=== PATIENT | male | born 2000 | race Caucasian/White ===

== ENCOUNTER 2025-04-11 18:21 | Emergency (ER) | payer BC, SELFPAY ==
[2025-04-11 18:22] VITALS: BMI 33.0
[2025-04-11 18:35] VITALS: BP 99/62; PULSE 92; RESP 20; TEMP 36.8; O2SAT 98
--- NOTE | 2025-04-11 18:39 | XR_ITS ---
Examination: Hand, right 3 views Technique: Hand AP, oblique, lateral 3 views Date and time of exam: April 11, 2025, 1848 hours. INDICATIONS: Dog bite today. FINDINGS: Old fracture fifth metacarpal. No acute fracture. No opaque foreign body. IMPRESSION: No opaque foreign body
--- NOTE | 2025-04-11 18:40 | EDNOTE_ITS ---
ED Animal Bite RME/HPI General Chief Complaint: Animal Bite Stated Complaint: 3 PUNCTURE WOUNDS TO TO R) HAND C/B DOG BITE Time Seen by Provider: 04/11/25 18:39 Arrival date/time: 04/11/25 18:21 Mode of arrival: ambulatory Limitations: no limitations RME / HPI RME / HPI narrative: 25-year-old healthy male with no past medical history is here today with a dog bite to his right hand. He states his 1.5-year-old Labrador bit his hand just prior to his arrival. He does not recall his last tetanus shot. He is allergic to Augmentin and penicillin. He has diffuse swelling of his right hand with a laceration along the dorsal aspect. Related Data Previous Rx's ?Medication ?Instructions ?Recorded doxycycline hyclate 100 mg tablet 100 mg PO BID #14 ta bs 04/11/25 doxycycline hyclate 100 mg tablet 100 mg PO BID 14 day s #28 tabs 04/11/25 ibuprofen 600 mg tablet 600 mg PO TID PRN pain #20 t abs 04/11/25 Allergies Allergy/AdvReac Type Severity Reaction Status Date / Time amoxicillin (From Augmentin) Allergy Severe Swelling Verified 04/11/25 18:25 of Lip/Tongue/Throat clavulanic acid (From Allergy Severe Swelling Verified 04/11/25 18:25 Augmentin) of Lip/Tongue/Throat Penicillins Allergy Severe Swelling Verified 04/11/25 18:25 of Lip/Tongue/Throat Review of Systems Review of Systems Systems Reviewed: All systems reviewed, normal except as documented ED Exam General Limitations: Present no limitations General appearance: Present alert and in no apparent distress Head Head exam: Present atraumatic Eye Eye exam: Present normal appearance, PERRL and EOMI ENT ENT exam: Present normal exam, normal oropharynx and mucous membranes moist Neck Neck exam: Present normal inspection, full ROM and trachea midline Chest Chest inspection: Present normal inspection and symmetric chest wall rise Respiratory Respiratory exam: Present normal lung sounds bilaterally Cardiovascular Cardiovascular exam: Present regular rate, normal rhythm and normal heart sounds Abdominal Exam Abdominal exam: Present soft and normal bowel sounds Extremities Exam Extremities exam: Present normal inspection and full ROM Back Exam Back exam: Present normal inspection and full ROM Neurological Exam Neurological exam: Present alert and oriented X3 Psychiatric Psychiatric exam: Present normal affect and normal mood Skin Skin exam: Present warm and other (There is a 2 cm, linear, laceration along the dorsal aspect the right hand in addition to a 0.3 cm, jagged, laceration along the dorsal aspect of the hand. On the long the palmar aspect there are 3 separate lacerations ranging 1 cm to 0.25 cm in length.) Course Quality Measures none Orders Category Date Time Status TDap [Obtain Tdap Consent] X1 Care 04/11/25 18:39 Completed XR hand comp RT min 3V Stat Exams 04/11/25 18:39 Completed Doxycycline [Vibramycin] Med 04/11/25 18:39 Discontinued 100 mg PO X1 ONE HYDROcodone*/APAP 5/325 [[place] 5/325] Med 04/11/25 18:39 Discontinued 1 tab PO X1 ONE Lidocaine 1% 20 ml [Xylocaine 1% 20 ML] Med 04/11/25 18:39 Discontinued 20 ml INFL X1 ONE Vital Signs Vital signs: Vital Signs Temperature 98.3 F 04/11/25 18:35 Pulse Rate 92 04/11/25 18:35 Respiratory Rate 20 04/11/25 18:35 Blood Pressure 99/62 04/11/25 18:35 Pulse Oximetry (%) 98 04/11/25 18:35 Oxygen Delivery Method Room Air 04/11/25 18:35 PROCEDURES: Procedure Comment Verbal consent was obtained. Wounds were infiltrated 1% lidocaine. Wounds were irrigated with normal saline by nursing staff. A total of 2 L was used. The 2 cm wound along the dorsal aspect of the hand was loosely approximated with 2, 4?0, simple interrupted nylon sutures. 2 wounds along the palmar aspect were loosely approximated with a single, 4?0, simple interrupted nylon suture. Procedure was tolerated well for any immediate complication. Animal Bite MDM Narrative MDM Narrative:: 25-year-old healthy male with no past medical history is here today with a dog bite to his right hand. He states his 1.5-year-old Labrador bit his hand just prior to his arrival. He does not recall his last tetanus shot. He is allergic to Augmentin and penicillin. He has diffuse swelling of his right hand with a laceration along the dorsal aspect. On exam, patient is mildly anxious appearing but in no visible signs of severe distress. Vital signs are stable. Cap refill of the right fingers is brisk. Patient has multiple, small, lacerations. X-rays were obtained and there were no appreciated foreign bodies or fractures. Wounds were loosely approximated after the the wounds were irrigated by nursing staff. Wound care were discussed. Patient agrees to follow-up in clinic in 10 days for wound recheck. Consider suture removal at that time. He will continue doxycycline as prescribed. Return as needed for any worsening or emergent changes. Patient data External records reviewed:: None Clinical information provided by:: patient Social determinants that could affect healthcare access:: none Patient has the following chronic illnesses:: n/a How is presenting disease/condition affected by chronic disease/condition?: no chronic disease Evaluation data The following diagnostics were reviewed and interpreted by me:: radiology exam(s) (No radiopaque foreign bodies or osseous injury) Lab and/or radiology exams considered but not ordered:: n/a Interpretation Summary: Dog bite, lacerations Medications / Prescriptions Medications or Prescriptions considered but not ordered:: n/a Medication administrations:: Medication Administration History Discontinued Medications Hydrocodone Bitart/Acetaminophen (Hydrocodone/Apap 5/325 Tablet) 1 tab PO X1 ONE Stop: 04/11/25 18:40 Last Admin: 04/11/25 19:01 Dose: 1 tab Documented By: МАРИНА Doxycycline Hyclate (Doxycycline 100 Mg Tablet) 100 mg PO X1 ONE Stop: 04/11/25 18:40 Last Admin: 04/11/25 19:02 Dose: 100 mg Documented By: МАРИНА Lidocaine HCl (Lidocaine Hcl 1% 20 Ml Vial) 20 ml INFL X1 ONE Stop: 04/11/25 18:40 Last Admin: 04/11/25 19:03 Dose: 20 ml Documented By: МАРИНА See above Consultations Consultation(s) initiated? (list below): No Diagnosis Differential diagnosis animal bite: dog bite Most likely diagnosis given after review of the tests above:: Dog bite, lacerations Admission Indicated Admission indicated?: not indicated Admission Request Was there a request for admission?: No Disposition Plan Disposition Plan: Discharge Discharge Attestation Discharge Attestation: The patient and all family members were given an opportunity to ask questions and understood the discharge instructions. Discharge instructions specifically effects, indications for sooner follow up or return to the emergency department, and the expected course of current diagnosis. Patient condition: Stable Discharge Plan Plan Patient Disposition: HOME (Self Care) Patient condition on transfer: Stable Prescriptions/Referrals Prescriptions/Med Rec: New doxycycline hyclate 100 mg tablet 100 mg PO BID Qty: 14 0RF ibuprofen 600 mg tablet 600 mg PO TID PRN (Reason: pain) Qty: 20 0RF doxycycline hyclate 100 mg tablet 100 mg PO BID 14 Days Qty: 28 0RF Referrals: Meri Thorpe MD [Primary Care Provider] - In 1 week Problem List Clinical Impression: Dog bite, Hand laceration Patient/Caregiver Discharge Instructions Education Materials: ED Dog Bite, ED Laceration, Hand: All Closures Additional Instructions: - It is important to keep your wounds covered. You may wash your hands frequent ly with soap and water. Avoid any hydroperoxide, alcohol, or iodine. - Continue using the provided antibiotic twice daily for 7 days. - Follow-up in clinic in 7 to 10 days for wound recheck. - Return at anytime for any worsening changes including signs and symptoms of infection. This includes includes but is not limited to increased redness, discharge, foul odor, or severe pain. Print Language: Emirati Stand Alone Forms: Gladys Award Info., Patient Portal Info Letter
[2025-04-11] MEDS: HYDROcodone/APAP 5/325 TABLET 1 TAB PO (19:01)
[2025-04-11] MEDS: DOXYCYCLINE 100 MG TABLET PO (19:02)
[2025-04-11] MEDS: LIDOCAINE HCL 1% 20 ML VIAL INFL (19:03)
== END 2025-04-11 21:38 | disposition home or self-care (01) ==
PROVIDERS: Emergency Provider Emergency Medicine; PCP Family Medicine
DX: S61.451A Open bite of right hand, initial encounter (principal); W54.0XXA Bitten by dog, initial encounter
CPT/HCPCS: 12001; 73130; 99283; J3490; A9270

== ENCOUNTER → 2025-05-18 | Outpatient (CLI) | payer BC, SELFPAY ==
[2025-05-18 08:50] LABS: Glucose Estimated Average 105 mg/dL (80-131); Hemoglobin A1C 5.3 % Hgb (4.8-6.0)
[2025-05-18 08:58] LABS: Alanine Aminotransferase 36 U/L (10-49); Albumin, Serum 5.0 gm/dL (3.5-5.0); Albumin/Globulin Ratio 2.4 (1.2-2.2); Anion Gap 11 (7-16); Aspartate Amino Transferase 22 U/L (0-34); BUN/Creatinine Ratio 14 Ratio (12-20); Bilirubin,Total 0.7 mg/dL (0.3-1.2); Blood Urea Nitrogen 15 mg/dL (9-23); Calcium 10.6 mg/dL (8.3-10.6); Calcium (Corrected) 10.6 mg/dL (8.5-10.1); Carbon Dioxide 27.6 mMol/L (20.0-31.0); Chloride 104 mMol/L (98-107); Cholesterol 200 mg/dL (132-200); Creatinine (Component) 1.1 mg/dL (0.6-1.3); Globulin 2.1 gm/dL (2.3-3.5); Glucose 92 mg/dL (74-106); HDL Cholesterol 51 mg/dL (40-60); Osmolality,Calculated 285 (275-295); Potassium 4.8 mMol/L (3.4-5.1); Sodium 143 mMol/L (136-145); Total Protein 7.1 gm/dL (5.7-8.2); Triglycerides 168 mg/dL (30-150); eGFR > 60 See Note
[2025-05-18 08:59] LABS: Alkaline Phosphatase 72 U/L (46-116); Cardiac Risk Estimate 3.9 RATIO (4.0-6.7); LDL Cholesterol,Calculated 115 mg/dL (0-130); Thyroid Stimulating Hormone 2.03 uIU/mL (0.55-4.78)
[2025-05-18 09:00] LABS: Basophils # (Auto) 0.0 Thou/mm3 (0.0-0.2); Basophils % (Auto) 1 % (0-2.5); Eosinophils # (Auto) 0.2 Thou/mm3 (0.0-0.5); Eosinophils % (Auto) 3 % (0-10); Hematocrit 50.2 % (41.0-53.0); Hemoglobin 17.2 g/dL (13.5-16.0); Immature Granulocytes Auto 0.04 Thou/mm3 (0.00-0.00); Lymphocytes # (Auto) 2.1 Thou/mm3 (1.0-4.8); Lymphocytes % (Auto) 34 % (10-50); Mean Corpuscular HGB Conc 34.3 g/dl (31.0-37.0); Mean Corpuscular Hemoglobin 29.8 pg (25.0-35.0); Mean Corpuscular Volume 87 fL (80-100); Monocytes # (Auto) 0.5 Thou/mm3 (0.0-0.8); Monocytes % (Auto) 8 % (0-12); Neutrophils # (Auto) 3.5 Thou/mm3 (1.8-7.7); Neutrophils % (Auto) 55 % (37-80); Nucleated Red Blood Cell # 0.00 Thou/mm3 (0.00-0.00); Nucleated Red Blood Cell % 0 /100 WBC (0); Platelet Count 222 Thou/mm3 (140-440); RDW Standard Deviation 37.7 fL (35.1-43.9); Red Blood Count 5.78 Miln/mm3 (4.50-5.90); White Blood Count 6.4 Thou/mm3 (3.8-10.6)
[2025-05-18 09:07] LABS: Folate 19.50 ng/mL (>5.38); Vitamin B12 526 pg/mL (211-911); Vitamin D 25 Hydroxy Total 33.4 ng/mL (7.3-40.2)
== END | disposition home or self-care (01) ==
LOC: COPL 07:30
PROVIDERS: PCP Student in an Organized Health Care Education/Training Program; Referring Provider Student in an Organized Health Care Education/Training Program; Visit Provider Student in an Organized Health Care Education/Training Program
DX: R03.0 Elevated blood-pressure reading, without diagnosis of hypertension (principal); R53.83 Other fatigue; Z82.49 Family history of ischemic heart disease and other diseases of the circulatory system
CPT/HCPCS: 36415; 80053; 80061; 82306; 82607; 82746; 83036; 84443; 85025

== ENCOUNTER → 2025-08-12 | Outpatient (CLI) | payer BC, SELFPAY ==
[2025-08-12 08:22] LABS: Basophils # (Auto) 0.0 Thou/mm3 (0.0-0.2); Basophils % (Auto) 1 % (0-2.5); Eosinophils # (Auto) 0.1 Thou/mm3 (0.0-0.5); Eosinophils % (Auto) 2 % (0-10); Hematocrit 47.9 % (41.0-53.0); Hemoglobin 16.2 g/dL (13.5-16.0); Immature Granulocytes Auto 0.03 Thou/mm3 (0.00-0.00); Lymphocytes # (Auto) 1.8 Thou/mm3 (1.0-4.8); Lymphocytes % (Auto) 31 % (10-50); Mean Corpuscular HGB Conc 33.8 g/dl (31.0-37.0); Mean Corpuscular Hemoglobin 29.3 pg (25.0-35.0); Mean Corpuscular Volume 87 fL (80-100); Monocytes # (Auto) 0.5 Thou/mm3 (0.0-0.8); Monocytes % (Auto) 9 % (0-12); Neutrophils # (Auto) 3.4 Thou/mm3 (1.8-7.7); Neutrophils % (Auto) 57 % (37-80); Nucleated Red Blood Cell # 0.00 Thou/mm3 (0.00-0.00); Nucleated Red Blood Cell % 0 /100 WBC (0); Platelet Count 242 Thou/mm3 (140-440); RDW Standard Deviation 37.1 fL (35.1-43.9); Red Blood Count 5.52 Miln/mm3 (4.50-5.90); White Blood Count 5.9 Thou/mm3 (3.8-10.6)
[2025-08-12 08:35] LABS: Free T4 (Free Thyroxine) 1.41 ng/dL (0.89-1.76); Thyroid Stimulating Hormone 2.46 uIU/mL (0.55-4.78)
[2025-08-23 07:00] LABS: Testosterone, Free,Dialysis 72.4 pg/mL (35.0-155.0); Testosterone, Total, Dialysis 395 ng/dL (250-1100)
== END | disposition home or self-care (01) ==
LOC: COPL 07:12
PROVIDERS: PCP Internal Medicine; Referring Provider Internal Medicine; Visit Provider Internal Medicine
DX: R53.83 Other fatigue (principal); R06.83 Snoring
CPT/HCPCS: 36415; 84402; 84403; 84439; 84443; 85025